=== PATIENT | male | born 1965 | race Two or more races ===

== ENCOUNTER 2017-12-20 11:57 | Emergency (ER) | payer MEDICAID, OTHER ==
[~2017-12-20] VITALS: Ht 180.3 cm; Wt 90.7 kg
[~2017-12-20 11:57] MED LIST: IBUPROFEN600 MG ORAL; NKM
[2017-12-20] MEDS ORDERED: Norco 5mg/325mg tab ORAL ONE (12:45)
[2017-12-20 13:43] LABS: APPEARANCE,URINE CLEAR; BILIRUBIN, URINE NEGATIVE (NEGATIVE); GLUCOSE, URINE (UA) NEGATIVE (NEGATIVE); KETONES,URINE NEGATIVE (NEGATIVE); LEUKOCYTE ESTERASE ,URINE 1+ (NEGATIVE); NITRITE,URINE NEGATIVE (NEGATIVE); PH,URINE 5 (4.5-8.0); PROTEIN,URINE NEGATIVE (NEGATIVE); UROBILINOGEN,URINE NORMAL MG/DL (0.0-1.0)
[2017-12-20 13:45] LABS: COLOR,URINE YELLOW
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
[2017-12-20] MEDS ORDERED: Azithromycin 250mg tab ORAL ONE (14:15)
[2017-12-20] MEDS ORDERED: Lidocaine 1% MPF 10mg/ml 5ml INJ ONE (14:15)
[2017-12-20] MEDS ORDERED: NORCO 5-325 TA1 EACH ORAL (14:18)
[2017-12-20] MEDS ORDERED: DOXYCYCLINE MO100 MG ORAL (14:18)
[2017-12-20 15:00] VITALS: BP 136/83
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
== END 2017-12-20 15:00 | disposition home or self-care (01) ==
LOC: EMR 12:34
DX: N45.1 Epididymitis (principal); N43.3 Hydrocele, unspecified
CPT/HCPCS: 76870; 81003; 96372; 99284; J0696; Q0144